=== PATIENT | female | born 1990 | race Caucasian/White ===

== ENCOUNTER 2022-02-10 01:04 | Emergency (ER) | payer OTHER ==
[2022-02-10] MEDS ORDERED: Alum Hydrox/Mag Hydrox/Simeth 30 ML, Lidocaine 2% 15 ML PO STA ×2 (01:32)
[2022-02-10] MEDS ORDERED: Famotidine 20 MG Tab PO STA (01:52)
[2022-02-10] MEDS ORDERED: Famotidine 20 MG Tab ONE ×2 (02:02→02:06)
== END 2022-02-10 02:10 | disposition home or self-care (01) ==
LOC: JD.ED 01:04
DX: K21.9 Gastro-esophageal reflux disease without esophagitis (principal); Z86.16 Personal history of COVID-19
CPT/HCPCS: 99283; A9270